=== PATIENT | female | born 1990 | race Caucasian/White ===

== ENCOUNTER 2016-06-10 18:06 | Emergency (ER) | payer OTHER ==
[2016-06-10 18:15] VITALS: BP 100/60; PULSE 88; TEMP 97.8; BMI 23.3
[2016-06-10] MEDS ORDERED: IBUPROFEN 400 MG TABLET (FP) PO ONE ×2 (18:54→18:55)
--- NOTE | 2016-06-10 19:07 | PDOC ---
History of Present Illness - General Chief Complaint: Back Pain Stated Complaint: BACK PAIN Time Seen by Provider: 06/10/16 18:22 History Source: Patient - History of Present Illness Occurred: reports: other Severity: reports: mild Pain Location: reports: back Past History - Past Medical History Allergies/Adverse Reactions: Allergies Allergy/AdvReac Type Severity Reaction Status Date / Time No Known Allergies Allergy Verified 06/10/16 18:12 Home Medications: Ambulatory Orders Ibuprofen [Motrin -] 800 mg PO Q6H #30 tablet 06/10/16 Asthma: No Cancer: No Cardiac Disorders: No Diabetes: No HTN: No Seizures: No Thyroid Disease: No Other medical history: NONE - Psycho/Social/Smoking Cessation Hx Anxiety: No Suicidal Ideation: No Smoking History: Never smoked Have you smoked in the past 12 months: No Information on smoking cessation initiated: No Hx Alcohol Use: No Drug/Substance Use Hx: No Substance Use Type: None Hx Substance Use Treatment: No Review of Systems - Review of Systems Constitutional: No: Chills, Fever ABD/GI: No: Nausea, Vomiting, Abdominal cramping : No: Burning, Dysuria Musculoskeletal: Yes: Back Pain Neurological: No: Numbness, Tingling, Weakness *Physical Exam - Vital Signs Last Vital Signs Temp Pulse Resp BP Pulse Ox 97.8 F 88 18 100/60 100 06/10/16 18:13 06/10/16 18:13 06/10/16 18:13 06/10/16 18:13 06/10/16 18:13 - Physical Exam General Appearance: Yes: Appropriately Dressed. No: Apparent Distress HEENT: positive: Normal Voice Neck: positive: Supple Respiratory/Chest: negative: Respiratory Distress Gastrointestinal/Abdominal: positive: Soft. negative: Tender Musculoskeletal: positive: Normal Inspection, Vertebral Tenderness (to lower back with forward bending). negative: CVA Tenderness Extremity: positive: Normal Inspection Integumentary: positive: Dry, Warm Neurologic: positive: Fully Oriented, Alert, Normal Mood/Affect Medical Decision Making - Medical Decision Making 06/10/16 18:55 25-year-old female, no significant history, here with back pain. States approximately one month ago, she developed non-radiating lower back pain that is intermittent and worse with certain movements. Unable to describe pain and states it is about a 4-5 out of 10. Has not taken anything for pain. Denies any trauma. No lower extremity weakness, saddle anesthesia or bowel or bladder incontinence. No symptoms, nausea, vomiting, fever or chills. No history of similar pain in the past. Seeking medical evaluation for the first time today for unclear reasons as denies that pain has worsened. See exam Low back pain No trauma No infectious symptoms No red flags in ED Well jovita and in NAD w/ reproducible tenderness on exam M/l MSK -d/c with pain control and pmd f/u 06/10/16 19:21 *DC/Admit/Observation/Transfer Diagnosis at time of Disposition: Back pain Qualifiers: Back pain location: low back pain Chronicity: acute Back pain laterality: bilateral Sciatica presence: without sciatica Qualified Code(s): M54.5 - Low back pain - Discharge Dispostion Disposition: HOME Condition at time of disposition: Good - Prescriptions Prescriptions: Ibuprofen [Motrin -] 800 mg PO Q6H #30 tablet - Patient Instructions Printed Discharge Instructions: Low Back Pain Additional Instructions: Take Motrin as prescribed and follow-up with your PMD if pain persists
== END 2016-06-10 19:24 | disposition home or self-care (01) ==
LOC: JERFT 18:06
DX: M54.5 Low back pain (principal)
CPT/HCPCS: 99281-25

== ENCOUNTER 2017-05-18 19:58 | Emergency (ER) | payer OTHER ==
[2017-05-18 20:20] VITALS: BP 104/64; PULSE 74; TEMP 98.1; BMI 21.1
--- NOTE | 2017-05-18 21:34 | PDOC ---
History of Present Illness - General Chief Complaint: Chest Pain Stated Complaint: CHEST PAIN Time Seen by Provider: 05/18/17 21:20 History Source: Patient Exam Limitations: No Limitations - History of Present Illness Initial Comments: CHIEF COMPLAINT: 26 y/o afebrile female with no significant PMH c/o left sided chest pain with inspiration since waking up this morning. HISTORY OF PRESENT ILLNESS: The patient states she also has pain in her left shoulder and left upper back. She does admit this has happened before and usually occurs when she is very stressed. She also admits that she lifts her 2 children often. She denies f/c, n/v/d, LEACH, jaw pain, dizziness, pain between her shoulder blades, cough, abd pain. Vital signs on arrival are within normal limits. REVIEW OF SYSTEMS: GENERAL/CONSTITUTIONAL: No fever/chills. No weakness. No weight change. HEAD, EYES, EARS, NOSE AND THROAT: No change in vision. No ear pain or discharge. No sore throat. CARDIOVASCULAR: +chest pain. No shortness of breath. RESPIRATORY: No cough, wheezing, or hemoptysis. GASTROINTESTINAL: No abd pain, nausea, vomiting, diarrhea. GENITOURINARY: No dysuria, frequency, or change in urination. MUSCULOSKELETAL: No joint or muscle swelling or pain. No neck or back pain. SKIN: No rash or easy bruising. NEUROLOGIC: No headache, vertigo, loss of consciousness, or loss of sensation. PHYSICAL EXAM: GENERAL: The patient is awake, alert, and fully oriented, in no acute distress. She is well appearing and ambulatory. NECK: No midline cervical spine TTP or step offs. LUNGS: Clear to auscultation bilaterally. Normal excursion. No respiratory distress or use of accessory muscles. CV: RRR, S1/S2, no MRG. Cap refill < 2 sec. CHEST WALL: Reproducible pain with palpation of left anterior chest wall EXTREMITIES: Normal range of motion, no edema. Pain reproduced with palpation of left trapezius muscle and left cervical paravertebral muscles, causing tingling in left arm. NEUROLOGICAL: Normal speech, normal gait. CN II-XII grossly intact. Equal accounting associate strength b/l. Sensory intact in left arm and hand. SKIN: Warm, dry, normal turgor, no rashes or lesions noted. Past History - Past Medical History Allergies/Adverse Reactions: Allergies Allergy/AdvReac Type Severity Reaction Status Date / Time No Known Allergies Allergy Verified 06/10/16 18:12 Home Medications: Ambulatory Orders Ibuprofen [Motrin -] 800 mg PO Q6H #30 tablet 06/10/16 Asthma: No Cancer: No Cardiac Disorders: No Diabetes: No HTN: No Seizures: No Thyroid Disease: No - Suicide/Smoking/Psychosocial Hx Smoking History: Never smoked Have you smoked in the past 12 months: No Hx Alcohol Use: No Drug/Substance Use Hx: No Substance Use Type: None Hx Substance Use Treatment: No *Physical Exam - Vital Signs Last Vital Signs Temp Pulse Resp BP Pulse Ox 98.1 F 74 16 104/64 100 05/18/17 20:15 05/18/17 20:15 05/18/17 20:15 05/18/17 20:15 05/18/17 20:15 Medical Decision Making - Medical Decision Making A/P: 26 y/o female with musculoskeletal left neck pain, chest pain and shoulder pain. Pt was given the option to give a urine sample to be given motrin or take motrin at home for her symptoms and she would like to go home. Suggested she apply heat and massage to affected area, take motrin every 6 hours for pain and follow up with her primary doctor within 1 week. The patient was instructed to return to the ER with any worsening or concerning symptoms. The patient verbalizes understanding of all instructions, has no further questions and is awaiting discharge. *DC/Admit/Observation/Transfer Diagnosis at time of Disposition: Musculoskeletal chest pain, Musculoskeletal neck pain, Cervical radiculopathy - Discharge Dispostion Disposition: HOME Condition at time of disposition: Good - Referrals - Patient Instructions Printed Discharge Instructions: DI for Atypical Chest Pain, DI for Musculoskeletal Pain, DI for Cervical Radiculopathy Additional Instructions: Discharge Instructions: -Take motrin for pain every 6 hours if needed -Apply heat and massage to affected areas to help with pain -Follow up with your doctor within 1 week -return to the ER with any worsening or concerning symptoms. - Post Discharge Activity
--- NOTE | 2017-05-24 11:02 | EKG ---
Test Reason : Blood Pressure : / mmHG Vent. Rate : 070 BPM Atrial Rate : 070 BPM P-R Int : 152 ms QRS Dur : 084 ms QT Int : 402 ms P-R-T Axes : 044 075 052 degrees QTc Int : 434 ms NORMAL SINUS RHYTHM CANNOT RULE OUT ANTERIOR INFARCT , AGE UNDETERMINED ABNORMAL ECG NO PREVIOUS ECGS AVAILABLE Confirmed by FERNANDA ZACARIAS MD ([id number]) on 05/24/2017 11:01:50 AM Referred By: Confirmed By:FERNANDA ZACARIAS MD
== END 2017-05-18 22:19 | disposition home or self-care (01) ==
LOC: JERFT 19:58
DX: R07.89 Other chest pain (principal); M54.12 Radiculopathy, cervical region
CPT/HCPCS: 93005; 93010; 99281-25

== ENCOUNTER 2018-04-04 18:35 | Emergency (ER) | payer OTHER ==
--- NOTE | 2018-04-04 18:58 | PDOC ---
Rapid Medical Evaluation Time Seen by Provider: 04/04/18 18:56 Medical Evaluation: Allergies Allergy/AdvReac Type Severity Reaction Status Date / Time No Known Allergies Allergy Verified 04/04/18 18:56 12 18:56 I have performed a brief in-person evaluation of this patient The patient presents with a chief complaint of sore throat for 2 days. subjective fever, (+)h/o recurrent throat infections needing antibiotics, last one was 5yrs ago. Pertinent physical exam findings: mild pharyngeal erythema, no tonsillar inflammation, no exudates I have ordered the following: rapid strep, flu swab The patient will proceed to the ED for further evaluation 04/04/18 21:23 Discharge Disposition - Diagnosis Strep throat - Discharge Dispostion Disposition: HOME Condition at time of disposition: Stable - Prescriptions Prescriptions: Amoxicillin - [Amoxicillin 500mg Capsule -] 500 mg PO TID 10 Days #30 capsule - Referrals Referrals: Hi Nguyễn MD [Primary Care Provider] - - Patient Instructions Printed Discharge Instructions: DI for Strep Throat Additional Instructions: Take antibiotic as directed. After taking the antibiotic for 2 days throw out your toothbrush and replace with new. For the fever alternate Tylenol 650 Amy grams every 4 hours and ibuprofen 6 mg every 6 hours. Follow-up with your family physician. - Post Discharge Activity Work/School Note: Back to Work
[2018-04-04 18:59] VITALS: BP 108/65; PULSE 104; TEMP 100.1
[2018-04-04] MEDS ORDERED: ACETAMINOPHEN 325 MG TABLET (FP) PO ONE (19:01)
[2018-04-04] MEDS ORDERED: ACETAMINOPHEN 325 MG TABLET (FP) ONE (19:39)
--- NOTE | 2018-04-04 19:40 | PDOC ---
History of Present Illness - General Chief Complaint: Sore Throat Stated Complaint: THROAT PAIN Time Seen by Provider: 04/04/18 18:56 History Source: Patient Exam Limitations: No Limitations - History of Present Illness Initial Comments: Patient is a 27-year-old female who states over the past 3 days she has had a sore throat and a fever. Patient admits to lymphadenopathy. She denies sick contacts and she describes the pain as sore and rates it at a 7 out of 10. No analgesics/antipyretics taken prior to arrival. Denies any aggravating or relieving factors. 04/04/18 19:37 Past History - Travel Traveled outside of the country in the last 30 days: No Close contact w/someone who was outside of country & ill: No - Past Medical History Allergies/Adverse Reactions: Allergies Allergy/AdvReac Type Severity Reaction Status Date / Time No Known Allergies Allergy Verified 04/04/18 18:56 Home Medications: Ambulatory Orders Amoxicillin - [Amoxicillin 500mg Capsule -] 500 mg PO TID 10 Days #30 capsule Asthma: No Cancer: No Cardiac Disorders: No COPD: No Diabetes: No HTN: No Seizures: No Thyroid Disease: No - Suicide/Smoking/Psychosocial Hx Smoking History: Never smoked Have you smoked in the past 12 months: No Information on smoking cessation initiated: No Hx Alcohol Use: No Drug/Substance Use Hx: No Substance Use Type: None Hx Substance Use Treatment: No Review of Systems - Review of Systems Able to Perform ROS?: Yes Constitutional: Yes: Fever. No: Chills HEENTM: Yes: Throat Pain. No: Difficulty Swallowing Respiratory: No: Cough All Other Systems: Reviewed and Negative *Physical Exam - Vital Signs Last Vital Signs Temp Pulse Resp BP Pulse Ox 100.1 F H 104 H 16 108/65 99 04/04/18 18:56 04/04/18 18:56 04/04/18 18:56 04/04/18 18:56 04/04/18 18:56 - Physical Exam Comments: Constitutional: VS stated, pt appears in no apparent distress; sitting in chair. Skin: Warm and dry. Intact, no lesions or excoriations. Head: Normocephalic; atraumatic Eyes: conjunctiva pink without injection or discharge. Ears: No tenderness present. Canals without injection or discharge; TM clear, no retractions or bulging. Nose: Patent, mucosa pink. No drainage. Throat: Oropharynx with pink and moist mucosa. Dentition good. No pharyngeal edema; erythema or exudate. Tongue normal, no fasciculations. Airway Patent. Hypoglossal area is soft. Uvula is midline. No trismus. Neck: Supple, with full ROM, trachea midline, pt has right sided anterior cervical chain lymphadenopathy. No stridor or bruits. Lungs: Bilateral breath sounds clear upon auscultation. No adventitious breath sounds. Heart: Regular rate and rhythm, S1/S2 auscultated. No murmurs, rubs, or gallops. No visible pulsations, heaves, or lifts on precordium. Musculoskeletal: Moves all extremities without difficulty Neuro: Alert and oriented Psych: Appropriate affect 04/04/18 19:39 Moderate Sedation - Procedure Monitoring Vital Signs: Procedure Monitoring Vital Signs Temperature 100.1 F H 04/04/18 18:56 Pulse Rate 104 H 04/04/18 18:56 Respiratory Rate 16 04/04/18 18:56 Blood Pressure 108/65 04/04/18 18:56 O2 Sat by Pulse Oximetry (%) 99 04/04/18 18:56 Medical Decision Making - Medical Decision Making Pt's RBS was positive Pt was given first dose of abx here. Pt was given Tylenol PO 04/04/18 19:39 04/04/18 19:59 *DC/Admit/Observation/Transfer Diagnosis at time of Disposition: Strep throat - Discharge Dispostion Disposition: HOME Condition at time of disposition: Stable Decision to Admit order: No - Prescriptions Prescriptions: Amoxicillin - [Amoxicillin 500mg Capsule -] 500 mg PO TID 10 Days #30 capsule - Referrals Referrals: Hi Nguyễn MD [Primary Care Provider] - - Patient Instructions Printed Discharge Instructions: DI for Strep Throat Additional Instructions: Take antibiotic as directed. After taking the antibiotic for 2 days throw out your toothbrush and replace with new. For the fever alternate Tylenol 650 Amy grams every 4 hours and ibuprofen 6 mg every 6 hours. Follow-up with your family physician. - Post Discharge Activity Forms/Work/School Notes: Back to Work
[2018-04-04] MEDS ORDERED: DEXAMETHASONE SOD PHOSPHATE 10 MG/1 ML VIAL ONE (19:43)
[2018-04-04] MEDS ORDERED: DEXAMETHASONE 4 MG TABLET (FP) PO ONE (19:45)
[2018-04-04] MEDS ORDERED: AMOXICILLIN 500 MG CAPSULE (FP) PO ONE (20:03)
[2018-04-04] MEDS ORDERED: AMOXICILLIN 250 MG CAPSULE ONE (20:06)
== END 2018-04-04 20:10 | disposition home or self-care (01) ==
LOC: JERFT 18:35
DX: J02.0 Streptococcal pharyngitis (principal)
CPT/HCPCS: 84703; 87804; 87880; 99281-25